=== PATIENT | male | born 1960 | race Caucasian/White ===

== ENCOUNTER 2017-05-31 07:47 | Day surgery (SDC) | payer MEDICAID ==
[~2017-05-31 07:47] MED LIST: HYDR-3580 PO
[2017-05-31 08:41] VITALS: BP 141/99; PULSE 97; RESP 14; TEMP 97.1; O2SAT 96
[2017-05-31 09:50] VITALS: BP 153/97; PULSE 92; RESP 20; TEMP 96.9; O2SAT 97
[2017-05-31] MEDS ORDERED: LIDOCAINE HCL 1% 20 ML VIAL ONE (09:58)
[2017-05-31 10:05] VITALS: BP 161/94; PULSE 86; RESP 20; O2SAT 99
--- NOTE | 2017-05-31 10:07 | RADRPT ---
EXAM DATE/TIME: 05/31/2017 08:40 [place] COMPARISON: No previous studies available for comparison. EXTERNAL COMPARISON: [facility], US ABDOMEN LIVER, Apr 18 2017. INDICATIONS : Ascites. MEDICAL HISTORY : Arthritis. Cirrhosis. Cerebellar ataxia with myopathy. Tachycardia. ETOH abuse. Anemia. Ascites. SURGICAL HISTORY : Umbilical hernia repair. Left femur fracture with IM nail placement. ENCOUNTER: Initial ACUITY: 3 weeks PAIN SCORE: 2/10 LOCATION: Right lower quadrant FLUID: Total volume of 5,100 cc of clear, yellow fluid was removed. Fluid was discarded. Paracentesis was therapeutic only. Post procedure scanning reveals no hematoma or other complication. TECHNIQUE: 1. Ultrasound guidance for abdominal paracentesis. 2. Paracentesis. The risks, benefits, and alternatives to ultrasound guided paracentesis were explained to the patient in detail including the risk of bleeding and infection. Written and verbal informed consent was obt ained. With the patient on the ultrasound table, ultrasound imaging was used to select the most appropriate approach for paracentesis. Overlying skin was prepped and draped in the usual sterile fashion and wi th a local anesthetic, a dermatotomy was made with an 11 blade scalpel. A 6 [place] [employer] ca theter was introduced into the peritoneal cavity and fluid was collected. The patient tolerated the procedure well and left the ultrasound suite in stable condition. CONCLUSION: Uncomplicated ultrasound guided paracentesis. Wero Davila MD on May 31, 2017 at 10:06 Board Certified Radiologist. This report was verified electronically.
[2017-05-31] MEDS ORDERED: ALBUMIN HUMAN 25% 25GM-W/12.5GM FOR 37.5GM IV ONE (10:30)
[2017-05-31] MEDS ORDERED: ALBUMIN HUMAN 25% 12.5GM-W/25GM FOR 37.5GM IV ONE (10:30)
[2017-05-31 10:35] VITALS: BP 124/83; PULSE 89; RESP 18; O2SAT 98
== END 2017-05-31 11:07 | disposition home or self-care (01) ==
LOC: HRAD 07:47 → HRIP 07:49 → HRAD 11:07
PROVIDERS: ATTEND Internal Medicine Gastroenterology
DX: R18.8 Other ascites (principal); K74.60 Unspecified cirrhosis of liver; R00.0 Tachycardia, unspecified; D64.9 Anemia, unspecified; G11.9 Hereditary ataxia, unspecified; G72.9 Myopathy, unspecified
CPT/HCPCS: 49083; 96365; C1729; P9047